=== PATIENT | female | born 1990 | race African-American/Black ===

== ENCOUNTER 2019-03-25 01:04 | Emergency (ER) | payer BC ==
[~2019-03-25] VITALS: Ht 167.6 cm; Wt 99.8 kg
[2019-03-25] MEDS ORDERED: PREDNISONE 20 MG TAB PO ONE (02:15)
[2019-03-25] MEDS ORDERED: ALBUTEROL/IPRATROPIUM 3 ML NEB NEB ONE (02:15)
[2019-03-25] MEDS ORDERED: PREDNISONE 20 MG TAB ONE (02:16)
== END 2019-03-25 02:19 | disposition home or self-care (01) ==
LOC: FSED 01:04
DX: R06.00 Dyspnea, unspecified (principal); R05 Cough; J45.901 Unspecified asthma with (acute) exacerbation
CPT/HCPCS: 99283; J7512